=== PATIENT | female | born 1980 | race African-American/Black ===

== ENCOUNTER 2017-12-24 12:48 | Emergency (ER) | payer BC, OTHER ==
[~2017-12-24] VITALS: Ht 165.1 cm; Wt 99.8 kg
--- NOTE | ~2017-12-24 | EKG ---
[address] [place] [address] ELECTROCARDIOGRAM REPORT Name: AMBERLYDILAN Virginie Room #: [facility]#: [id number] Admission: 12/24/17 Attend Phys: Discharge: 12/24/17 Date of : 80 Report #: [id number] THIS REPORT FOR: //name// [facility] ED Test Date: 2017-12-24 Test Time: 12:58:24 Pat Name: DILAN GAMING Department: Room: Gender: F Replanter: aj : 1980 Requested By: Jean Prince Order Number: [id number] MD: Oleksandr Pérez Measurements Intervals [place] Rate: 100 P: 38 MT: 137 QRS: -11 QRSD: 90 T: 58 QT: 355 QTc: 458 Interpretive Statements Sinus tachycardia Abnormal R-wave progression, late transition No previous ECG available for comparison Electronically Signed On 12-24-2017 17:42:08 CDT by Oleksandr Pérez [email or web address] <ELECTRONICALLY SIGNED> By: Oleksandr Pérez MD 12/24/17 1742 [id number] MD MIAH Richter
[~2017-12-24 12:48] MED LIST: AMOXICILLIN 50500 MG OR; DOXYCYCLINE 10100 MG PO; GLUCOPHAGE500 MG PO; KEFLEX500 MG PO; MACROBID 100 M100 M1 PO; METFORMIN 500500 MG PO; MICRONASE5 MG PO; NICOTINE TRANSDE7 MG TD; NORCO 5-325 TA1 EACH PO; NOVOLIN N100 UNIT/3 SC; NOVOLIN R100 UNIT/1; PROVENTIL IH; ULTRAM 50MG TAB50 MG PO
[2017-12-24 13:40] LABS: ABSOLUTE NEUTROPHILS 3.9 thou/uL (1.4-8.2); BASOPHILS 1.4 % (0.0-2.0); EOSINOPHILS 2.2 % (0.0-3.0); HEMATOCRIT 36.9 % (37.0-47.0); HEMOGLOBIN 12.1 gm/dL (12.0-15.0); LYMPHOCYTES 37.3 % (24.0-44.0); MCHC 32.8 g/dL (28.0-37.0); MCV 79.3 fL (80.0-100.0); PLATELET COUNT 365 thou/uL (150-400); POLYS 51.1 % (36.0-66.0); RBC 4.66 mil/uL (4.20-5.00); RDW 13.9 % (10.5-14.5); WBC 7.7 thou/uL (4.0-11.0)
[2017-12-24 13:51] LABS: ANION GAP 5 mmol/L (7-16); BUN 26 mg/dL (7-18); CALCIUM 9.8 mg/dL (8.5-10.1); CHLORIDE 103 mmol/L (98-107); CO2 25 mmol/L (21-32); CREATININE 1.9 mg/dL (0.6-1.0); GLUCOSE 351 mg/dL (74-106); POTASSIUM 4.6 mmol/L (3.5-5.1); SODIUM 133 mmol/L (136-145)
[2017-12-24] MEDS ORDERED: METFORMIN HCL500 MG PO (13:54)
[2017-12-24] MEDS ORDERED: BENICAR40 MG PO (13:54)
[2017-12-24 13:56] LABS: APTT 26.3 Seconds (24.5-32.8); PROTIME 9.4 Seconds (9.3-11.4)
[2017-12-24] MEDS ORDERED: PROPYLTHIOURACI50 MG PO (13:57)
[2017-12-24 14:01] LABS: ALBUMIN 2.8 g/dL (3.4-5.0); SGOT 14 U/L (15-37); SGPT 19 U/L (30-65); TOTAL BILIRUBIN 0.1 mg/dL (<0.1-1.0); TROPONIN-I <0.06 ng/mL (<0.06)
[2017-12-24 14:08] LABS: AMP/METHAMP Negative (Negative); BARBITURATES Negative (Negative); BENZODIAZEPINES Negative (Negative); COCAINE Negative (Negative); METHADONE Negative (Negative); OPIATES Negative (Negative); PCP Negative (Negative)
[2017-12-24] MEDS ORDERED: CARAFATE 1 GM TA1 G1 PO (16:29)
[2017-12-24 16:30] VITALS: BP 144/89
== END 2017-12-24 16:36 | disposition home or self-care (01) ==
LOC: ER 12:48
PROVIDERS: Emergency Medicine
DX: K21.9 Gastro-esophageal reflux disease without esophagitis (principal); I10 Essential (primary) hypertension; E03.9 Hypothyroidism, unspecified; R11.2 Nausea with vomiting, unspecified; F17.200 Nicotine dependence, unspecified, uncomplicated; E11.9 Type 2 diabetes mellitus without complications; J45.909 Unspecified asthma, uncomplicated; Z79.4 Long term (current) use of insulin

== ENCOUNTER 2019-05-10 20:00 | Emergency (ER) | payer BC, OTHER ==
[~2019-05-10] VITALS: Ht 165.1 cm; Wt 89.8 kg
[~2019-05-10 20:00] MED LIST changes: +BENICAR40 MG PO; +CARAFATE 1 GM TA1 G1 PO; +METFORMIN HCL500 MG PO; +PROPYLTHIOURACI50 MG PO
[2019-05-10 20:03] VITALS: BP 225/132
[2019-05-10] MEDS ORDERED: NORVASC 2.5 MG2.5 M1 PO (20:14)
[2019-05-10] MEDS ORDERED: THYROID MED (20:14)
[2019-05-10] MEDS ORDERED: [UNRECOGNIZED DRUG - OTHER] (20:15)
[2019-05-10] MEDS ORDERED: TESSALON PERLE100 MG PO (21:55)
[2019-05-10] MEDS ORDERED: VENTOLIN HFA 1818 GM INH (21:55)
== END 2019-05-10 22:11 | disposition home or self-care (01) ==
LOC: ER 20:00
DX: J06.9 Acute upper respiratory infection, unspecified (principal); I10 Essential (primary) hypertension; E11.9 Type 2 diabetes mellitus without complications; E03.9 Hypothyroidism, unspecified; J45.909 Unspecified asthma, uncomplicated; F17.210 Nicotine dependence, cigarettes, uncomplicated; Z91.19 Patient's noncompliance with other medical treatment and regimen